=== PATIENT | male | born 1945 | race Caucasian/White ===

== ENCOUNTER → 2023-06-17 | Outpatient (CLI) | payer MEDICARE ==
[2023-06-17 10:07] VITALS: BP 116/66; PULSE 61; RESP 17; TEMP 98; O2SAT 98
== END | disposition home or self-care (01) ==
LOC: SRCNTR 09:39
PROVIDERS: ATTEND Internal Medicine Pulmonary Disease
DX: G47.33 Obstructive sleep apnea (adult) (pediatric) (principal); I10 Essential (primary) hypertension; S80.929A Unspecified superficial injury of unspecified lower leg, initial encounter; Z82.49 Family history of ischemic heart disease and other diseases of the circulatory system; X58.XXXA Exposure to other specified factors, initial encounter; Y93.89 Activity, other specified; Y92.89 Other specified places as the place of occurrence of the external cause; Y99.8 Other external cause status
CPT/HCPCS: G0463; Z7500

== ENCOUNTER → 2023-09-03 | Outpatient (CLI) | payer MEDICARE ==
[~2023-09-03] MED LIST: CELE100 PO; FLUO10CA24 PO; LOSA-381 PO; POTA-92 PO; PRAM0.259 PO; SOLI5 PO; TAMS0.4C94 PO
== END | disposition home or self-care (01) ==
LOC: RADMN 12:00
PROVIDERS: ATTEND Internal Medicine Pulmonary Disease
DX: G47.33 Obstructive sleep apnea (adult) (pediatric) (principal); M47.814 Spondylosis without myelopathy or radiculopathy, thoracic region; Q25.46 Tortuous aortic arch
CPT/HCPCS: 71046

== ENCOUNTER → 2023-09-03 | Outpatient (CLI) | payer MEDICARE ==
[~2023-09-03] VITALS: Ht 180.3 cm; Wt 112.0 kg
[2023-09-03 09:59] VITALS: BP 102/61; PULSE 73; RESP 21; O2SAT 97
== END | disposition home or self-care (01) ==
LOC: SRCNTR 09:40
PROVIDERS: ATTEND Internal Medicine Pulmonary Disease
DX: G47.33 Obstructive sleep apnea (adult) (pediatric) (principal); I10 Essential (primary) hypertension
CPT/HCPCS: G0463; Z7500

== ENCOUNTER → 2023-10-08 | Outpatient (CLI) | payer MEDICARE ==
[~2023-10-08] VITALS: Ht 177.8 cm; Wt 109.5 kg
[2023-10-08 10:19] VITALS: BP 121/72; PULSE 68; RESP 16; TEMP 98.1; O2SAT 98
== END | disposition home or self-care (01) ==
LOC: SRCNTR 10:01
PROVIDERS: ATTEND Internal Medicine Pulmonary Disease
DX: G47.33 Obstructive sleep apnea (adult) (pediatric) (principal); R91.8 Other nonspecific abnormal finding of lung field; I10 Essential (primary) hypertension; Z79.899 Other long term (current) drug therapy; Z88.8 Allergy status to other drugs, medicaments and biological substances; Z82.49 Family history of ischemic heart disease and other diseases of the circulatory system
CPT/HCPCS: G0463

== ENCOUNTER → 2023-10-21 | Outpatient (CLI) | payer MEDICARE | END | disposition home or self-care (01) | LOC: RADMN 10:56 | PROVIDERS: ATTEND Internal Medicine Pulmonary Disease | DX: J92.9 Pleural plaque without asbestos (principal) | CPT/HCPCS: 71250 ==

== ENCOUNTER → 2023-11-24 | Outpatient (CLI) | payer MEDICARE ==
[~2023-11-24] VITALS: Ht 177.8 cm; Wt 105.0 kg
[~2023-11-24] MED LIST changes: +CEPH-558 PO; +CYAN-11 INJ; +DORZ10DR10 OU; +HYDR-4723 PO; +HYDR25TA2 PO; +XALA2.5OS OU
[2023-11-24 11:32] VITALS: BP 95/65; PULSE 74; RESP 21; TEMP 98.1; O2SAT 98
== END | disposition home or self-care (01) ==
LOC: SRCNTR 11:01
PROVIDERS: ATTEND Internal Medicine Pulmonary Disease
DX: G47.33 Obstructive sleep apnea (adult) (pediatric) (principal); E87.1 Hypo-osmolality and hyponatremia; I10 Essential (primary) hypertension; Z79.899 Other long term (current) drug therapy
CPT/HCPCS: G0463